=== PATIENT | female | born 1950 | race Caucasian/White ===

== ENCOUNTER → 2018-03-21 | Outpatient (CLI) | payer MEDICARE, MEDICAID ==
[2015-05-06 16:45] VITALS: BP 137/56
[~2018-03-21] MED LIST: CANA1TAB4 PO; LINA5TAB4 PO; LISI-334 PO; METF500T5 PO
[2018-03-21 10:40] LABS: BASO % 0 % (0-3); EOS # 0.1 x10^3/uL (0.0-0.7); EOS % 1 % (0-3); HEMATOCRIT 37.7 % (36.0-47.0); HEMOGLOBIN 12.8 g/dL (12.0-15.5); LYMPH # 1.6 x10^3/uL (1.0-4.8); LYMPH % 27 % (24-48); MEAN CORPUSCULAR HEMOGLOBIN 31 pg (25-35); MEAN CORPUSCULAR HGB CONC 34 g/dL (31-37); MEAN CORPUSCULAR VOLUME 91 fL (79-100); MONO # 0.5 x10^3/uL (0.0-1.1); MONO % 8 % (0-9); NEUT # 3.8 x10^3uL (1.8-7.7); NEUT % 63 % (31-73); PLATELET COUNT 219 x10^3/uL (140-400); RED BLOOD COUNT 4.15 x10^6/uL (3.50-5.40)
[2018-03-21 10:56] LABS: ALBUMIN 3.5 g/dL (3.4-5.0); ALBUMIN/GLOBULIN RATIO 0.9 (1.0-1.7); CALCIUM 9.6 mg/dL (8.5-10.1); CREATININE 0.9 mg/dL (0.6-1.0); GFR 62.1; POTASSIUM 4.1 mmol/L (3.5-5.1); TOTAL BILIRUBIN 0.3 mg/dL (0.2-1.0); TOTAL PROTEIN 7.5 g/dL (6.4-8.2)
[2018-03-22 03:12] LABS: HEMOGLOBIN A1C 11.1 % (4.8-5.6)
== END | disposition home or self-care (01) ==
LOC: LAB 10:13
PROVIDERS: ATTEND General Practice
DX: I10 Essential (primary) hypertension (principal); E55.9 Vitamin D deficiency, unspecified; R53.83 Other fatigue; R73.9 Hyperglycemia, unspecified
CPT/HCPCS: 36415; 80053; 82306; 83036; 84443; 85025

== ENCOUNTER → 2018-04-05 | Outpatient (CLI) | payer MEDICARE, MEDICAID ==
[2015-05-06 16:45] VITALS: BP 137/56
== END | disposition home or self-care (01) ==
LOC: LAB 10:31
PROVIDERS: ATTEND General Practice
DX: B19.10 Unspecified viral hepatitis B without hepatic coma (principal); E55.9 Vitamin D deficiency, unspecified; I10 Essential (primary) hypertension; Z90.89 Acquired absence of other organs; Z86.19 Personal history of other infectious and parasitic diseases
CPT/HCPCS: 36415; 86705; 86709; 86803; 87340; 87517